=== PATIENT | female | born 1990 | race Caucasian/White ===

== ENCOUNTER 2020-08-07 06:42 | Outpatient (NON) | payer OTHER, SELFPAY ==
[2020-08-08 14:21] LABS: SARS-CoV-2 RNA PCR Negative
== END 2020-08-07 06:43 ==
PROVIDERS: PCP Nurse Practitioner Family; Visit Provider Nurse Practitioner Family
DX: Z20.828 Contact with and (suspected) exposure to other viral communicable diseases (principal); J06.9 Acute upper respiratory infection, unspecified
CPT/HCPCS: 87635; C9803; U0003

== ENCOUNTER 2022-12-31 13:31 | Emergency (ER) | payer OTHER, SELFPAY ==
[2022-12-31 13:38] VITALS: BP 127/77; PULSE 77; RESP 12; TEMP 36.6; O2SAT 100
--- NOTE | 2022-12-31 13:53 | ED.URI ---
HPI - URI/Sore Throat General Chief Complaint: Upper Respiratory Infection Stated Complaint: Sinus Time Seen by Provider: 12/31/22 13:50 Source: patient Mode of arrival: ambulatory Limitations: no limitations History of Present Illness HPI Narrative: Shania is a 32-year-old female patient presenting to the clinic today with complaints of sinus congestion. She reports that this has been going on for approximately 1 week. She is having some yellow nasal drainage and sinus pressure. She denies any fever or chills. MD elicited complaint: rhinorrhea, nasal congestion and sinus pain Related Data Home Medications Medication Instructions Recorded Confirmed dicyclomine 20 mg tablet mg 12/31/22 pantoprazole 40 mg tablet,delayed mg PO 12/31/22 release sodium,potassium,mag sulfates 17.5 12/31/22 gram-3.13 gram-1.6 gram oral soln Allergies Allergy/AdvReac Type Severity Reaction Status Date / Time Penicillins Allergy Severe RASH Verified 12/31/22 13:37 guaifenesin Allergy Intermediate Rash Verified 12/31/22 13:37 pseudoephedrine Allergy Intermediate Rash Verified 12/31/22 13:37 Review of Systems Review of Systems: Pertinent positives per HPI. Patient denies any fever, chills, rash, headache, visual changes, dizziness, cough, shortness of breath, chest pain, palpitations, nausea, vomiting, diarrhea, constipation, abdominal pain, or any urinary issues. 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 There is no relevant family history pertinent to the patient complaint. Exam Narrative: General: Well-developed, well nourished, in no apparent distress Head: Normocephalic, atraumatic Eyes: Pupils equally round and reactive to light bilaterally, EOM intact, sclera and conjunctive clear, no discharge, lids normal Ears: TMs intact and clear, ear canals clear, no drainage, grossly hearing normal. Nose: Nares patent, no discharge, no inflammation, no sinus tenderness. Mouth: Oral pharynx without lesions or masses, good dentition, MMM. Neck: Supple, trachea midline, no enlargement of anterior or posterior cervical nodes, no thyroid masses or goiter palpable. Cardio: Regular rate and rhythm, s1 and s2 normal, no murmur appreciated. Resp: Clear to auscultation bilaterally, no rhonchi, rales, wheezing or rubs Course Course Emergency Course: Portions of this record may have been created with voice recognition software. Level of Care: Express Care Visit Vital Signs Vital signs: Vital Signs Temperature 36.6 C 12/31/22 13:38 Pulse Rate 77 12/31/22 13:38 Respiratory Rate 12 12/31/22 13:38 Blood Pressure 127/77 12/31/22 13:38 Pulse Oximetry 100 12/31/22 13:38 Oxygen Delivery Room Air 12/31/22 13:38 Temperature 36.6 C 12/31/22 13:38 Pulse Rate 77 12/31/22 13:38 Respiratory Rate 12 12/31/22 13:38 Blood Pressure 127/77 12/31/22 13:38 Pulse Oximetry 100 12/31/22 13:38 Oxygen Delivery Room Air 12/31/22 13:38 Vital signs reviewed MDM - URI/Sore Throat MDM N
== END 2022-12-31 14:00 | disposition home or self-care (01) ==
PROVIDERS: Emergency Provider Nurse Practitioner Family; PCP Nurse Practitioner Family
DX: J06.9 Acute upper respiratory infection, unspecified (principal); H69.93 Unspecified Eustachian tube disorder, bilateral; Z87.891 Personal history of nicotine dependence; M19.90 Unspecified osteoarthritis, unspecified site; E28.2 Polycystic ovarian syndrome
CPT/HCPCS: 87081; 87880; 99213; G0463

== ENCOUNTER 2023-01-31 08:27 | Outpatient (RCR) | payer OTHER, SELFPAY ==
[2023-01-31 10:09] LABS: Basophils Percent Auto 0.4 % (0.2-1.2); Eosinophils Absolute Auto 0.1 K/mm3 (0-0.3); Eosinophils Percent Auto 0.8 % (0-4.4); Hematocrit 39.8 % (37.0-47.0); Hemoglobin 13.5 g/dL (12.0-15.0); Immature Granulocyte Absolute 0.01 K/mm3 (0.00-0.031); Immature Granulocyte Percent A 0.1 % (0-0.5); Lymphocytes Absolute Auto 3.13 K/mm3 (0.9-3.2); Lymphocytes Percent Auto 39.5 % (18.3-44.2); Mean Corpuscular HGB Conc 33.9 g/dl (32-36); Mean Corpuscular Hemoglobin 31.6 pg (26-34); Mean Corpuscular Volume 93.2 fl (80-100); Mean Platelet Volume 9.7 fl (7.4-10.4); Monocytes Absolute Auto 0.7 K/mm3 (0.1-0.6); Monocytes Percent Auto 8.6 % (2.6-8.5); Neutrophils Percent Auto 50.6 % (45.5-73.1); Platelet Count Result 226 k/mm3 (150-375); Red Blood Count 4.27 M/mm3 (4.2-5.4); Red Cell Distribution Width 12.4 % (11.5-14.5); White Blood Count 7.9 K/mm3 (4.5-10.0)
[2023-01-31 10:57] LABS: Creatinine Urine 146.1 mg/dL
[2023-01-31 11:07] LABS: Alanine Aminotransferase 19 U/L (6-35); Albumin Level 4.7 g/dL (3.5-5.1); Alkaline Phosphatase 69 U/L (38-126); Anion Gap 10 mmol/L (8-16); Aspartate Amino Transferase 22 U/L (14-36); Bilirubin,Total 0.5 mg/dL (0.2-1.3); Blood Urea Nitrogen 10 mg/dL (7-17); Calcium 9.2 mg/dL (8.4-10.2); Carbon Dioxide 24 mmol/L (22-30); Chloride 104 mmol/L (98-107); Estimated Glomerular Filt Rate > 60; Glucose 69 mg/dL (65-110); Glucose 1 Hour PP 50gm Dose 69 mg/dL; Potassium 3.2 mmol/L (3.4-5.0); Sodium 138 mmol/L (137-145)
[2023-01-31 11:34] LABS: HIV 1/2 Ab P24 Ag Result Negative (Negative)
[2023-01-31 11:53] LABS: Hepatitis B Surface Antigen Negative (Negative); Rubella IgG Antibody 48.3 IU/ML
[2023-01-31 14:09] LABS: Total Protein Urine Random 9 mg/dL
[2023-02-01 08:14] LABS: Rapid Plasma Reagin Non-Reactive (NonReactive)
[2023-02-03 08:20] LABS: CMV IgG Antibody <0.60 U/mL (<0.60)
== END 2023-05-01 23:59 | disposition home or self-care (01) ==
LOC: ANHLAB 08:27
PROVIDERS: PCP Nurse Practitioner Family; Visit Provider Student in an Organized Health Care Education/Training Program
DX: N94.89 Other specified conditions associated with female genital organs and menstrual cycle (principal); Z11.4 Encounter for screening for human immunodeficiency virus [HIV]
CPT/HCPCS: 36415; 80053; 81002; 81050; 82570; 82947; 84156; 85025; 86592; 86644; 86703; 86747; 86762; 86787; 86850; 86900; 86901; 87086; 87340; G0432

== ENCOUNTER 2023-02-22 17:56 | Observation (INO) | payer OTHER, SELFPAY ==
--- NOTE | ~2023-02-22 | US_ITS ---
EXAMINATION: US OB <= 14 weeks fetus DATE: 02/23/2023 10:31 INDICATION: Vaginal bleeding during first trimester twin TECHNIQUE: Real-time pelvic transabdominal ultrasound was performed. COMPARISON: None. FINDINGS: There are two intrauterine gestational sacs by a thick membrane. The cervical jacquie gth is 5.6 cm Baby A: heart motion is identified measuring 163 beats per minute (bpm) by M-mode Doppler. The cr own rump length measures 2.9 cm, which correlates with an estimated gestational age of 9 weeks and 5 day(s) (+/-) 6 day(s). Baby B: heart motion is identified measuring 162 beats per minute (bpm) by M-mode Doppler. The cr own rump length measures 2.9 cm, which correlates with an estimated gestational age of 9 weeks and 5 day(s) (+/-) 6 day(s). The ovaries are not visualized however no adnexal abnormality is seen. There is no free fluid in the pelvis. IMPRESSION: 1. Dichorionic, diamniotic twin with an estimated gestational age of 9 weeks and 5 day(s) ( +/-) 6 day(s). No sonographic correlate for vaginal bleeding. Reviewed, dictated and finalized at location L. IMPRESSION: 1. Dichorionic, diamniotic twin with an estimated gestational age of 9 weeks and 5 day(s) (+/-) 6 day(s). No sonographic correlate for vaginal bleed ing.
[2023-02-22 18:04] VITALS: BP 133/71; PULSE 86; RESP 14; TEMP 36.3; O2SAT 100
--- NOTE | 2023-02-22 18:11 | ED.PREGNANCY ---
HPI - General Chief complaint: Vaginal Bleeding Stated complaint: vaginal bleeding 8 weeks Time Seen by Provider: 02/22/23 18:10 Source: patient and family Mode of arrival: ambulatory Limitations: no limitations History of Present Illness HPI Narrative: Patient is a currently 9 weeks with twin presenting for evaluation of vaginal bleeding. Patient states that she was outside working in the yard, pulling weeds when she suddenly felt a denise of fluid and bright red blood present. Patient reports this persisted over the course of 1 hour, prompting visit to the ER. She denies any lightheadedness, dizziness, shortness of breath. No vaginal pain, cramping, contraction-like pain. Patient has had a pelvic ultrasound and [facility] office that was notable for twin gestation corresponding to LMP. Patient reports blood type is B+. Patient denies any recent heavy lifting. No vaginal intercourse. No discharge. No dysuria or hematuria. Related Data Home Medications Medication Instructions Recorded Confirmed sodium,potassium,mag sulfates 17.5 12/31/22 gram-3.13 gram-1.6 gram oral soln prenat.vits,stephanie,[id number] 1 tablet PO DAILY 01/30/23 Allergies Allergy/AdvReac Type Severity Reaction Status Date / Time Penicillins Allergy Severe RASH Verified 01/30/23 08:25 guaifenesin Allergy Intermediate Rash Verified 01/30/23 08:25 pseudoephedrine Allergy Intermediate Rash Verified 01/30/23 08:25 Review of Systems Review of Systems: CONSTITUTIONAL: Denies fever CARDIOVASCULAR: Denies chest pain RESPIRATORY: Denies cough or dyspnea. GASTROINTESTINAL: Denies abdominal pain : Reports vaginal bleeding SKIN: Denies rash MUSCULOSKELETAL: Denies back pain NEUROLOGIC: Denies headache REPLACED BY [facility] Past Medical History Medical History Arthritis Depression Gestational HTN PCOS (polycystic ovarian syndrome) Suppression of menses Surgical History Surgical History History of surgery Tumors removed from sinuses History of tonsillectomy Social History Social History Smoking status: Former smoker Tobacco type: cigarettes Alcohol intake: never Substance use: never Substance use type: does not use Living arrangements: with family Occupation/Education: occupation 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 EYES: PERRLA and EOMI. ENT: Nares clear, no rhinorrhea or epistaxis. Mucous membranes moist. NECK: Supple. CHEST: No respiratory distress, breathing even and non labored HEART: Regular rate, sinus rhythm ABDOMEN:Non distended, non tender : Labia majora and minora normal without lesions. Vagina with blood present; no large blood products. No brisk bleeding. No cervical motion tenderness. No adnexal tenderness or fullness bilaterally. No other discharge present. EXTREMITIES: Normal range of motion. No edema. SKIN: Warm, dry, no rash. NEURO:No focal deficits. Alert and oriented x3 Course Vital Signs Vital signs: Vital Signs Temperature 36.3 C L 02/22/23 18:04 Pulse Rate 86 02/22/23 18:04 Respiratory Rate 14 02/22/23 18:04 Blood Pressure 133/71 02/22/23 18:04 Pulse Oximetry 100 02/22/23 18:04 Oxygen Delivery Room Air 02/22/23 18:04 Temperature 36.6 C 02/22/23 19:42 Pulse Rate 69 02/22/23 19:42 Respiratory Rate 18 02/22/23 19:42 Blood Pressure 131/69 02/22/23 19:42 Pulse Oximetry 99 02/22/23 19:42 Oxygen Delivery Room Air 02/22/23 18:04 MDM - OB/Uterine Contractions MDM Narrative Medical decision making narrative: Medical de
[2023-02-22 18:56] LABS: Basophils Percent Auto 0.3 % (0.2-1.2); Eosinophils Absolute Auto 0.2 K/mm3 (0-0.3); Hematocrit 38.5 % (37.0-47.0); Immature Granulocyte Absolute 0.05 K/mm3 (0.00-0.031); Immature Granulocyte Percent A 0.4 % (0-0.5); Lymphocytes Absolute Auto 3.74 K/mm3 (0.9-3.2); Lymphocytes Percent Auto 33.2 % (18.3-44.2); Mean Corpuscular HGB Conc 33.8 g/dl (32-36); Mean Corpuscular Hemoglobin 31.9 pg (26-34); Mean Corpuscular Volume 94.4 fl (80-100); Mean Platelet Volume 9.3 fl (7.4-10.4); Monocytes Absolute Auto 0.8 K/mm3 (0.1-0.6); Monocytes Percent Auto 6.8 % (2.6-8.5); Neutrophils Absolute Auto 6.4 K/mm3 (1.3-6.7); Neutrophils Percent Auto 57.3 % (45.5-73.1); Platelet Count Result 250 k/mm3 (150-375); Red Blood Count 4.08 M/mm3 (4.2-5.4); Red Cell Distribution Width 12.8 % (11.5-14.5); White Blood Count 11.3 K/mm3 (4.5-10.0)
[2023-02-22 19:07] LABS: Anion Gap 7 mmol/L (8-16); Blood Urea Nitrogen 9 mg/dL (7-17); Calcium 9.3 mg/dL (8.4-10.2); Carbon Dioxide 27 mmol/L (22-30); Chloride 103 mmol/L (98-107); Estimated CRCL calculation 160 ml/min; Estimated Glomerular Filt Rate > 60; Glucose 84 mg/dL (65-110); Potassium 3.3 mmol/L (3.4-5.0); Sodium 137 mmol/L (137-145)
[2023-02-22 19:42] VITALS: BP 131/69; PULSE 69; RESP 18; TEMP 36.6; O2SAT 99
[2023-02-22 22:00] VITALS: BP 118/79; PULSE 77; RESP 18; TEMP 36.6; O2SAT 99
[2023-02-22 23:09] VITALS: BP 114/63; PULSE 71; RESP 16; TEMP 36.3; O2SAT 100
[2023-02-22 23:10] VITALS: BMI 35.0
--- NOTE | 2023-02-22 23:26 | ADMGEN ---
This patient, Shania Giron, was admitted to [facility] Surg Room 327-01. Patient/family oriented to hospital policies and general routines including ID bracelet, bed and alarms, visiting hours, pain management, procedures, bathroom and other care routines, personal items, smoking policy, room service/diet, and visiting hours. Information on how to activate the Rapid Response Team has been discussed. Patient/Family are encouraged to report perceived risks to care and to ask questions if they do not understand what they are told or what they should do.
[2023-02-23 05:50] VITALS: BP 107/70; PULSE 74; RESP 18; TEMP 36.2; O2SAT 100
--- NOTE | 2023-02-23 07:40 | PM.IMHP ---
H&P: HPI History of Present Illness Date/Time: 02/23/23 07:40 Chief Complaint: threatened Narrative: 32-year-old who presented to the emergency room with complaints of heavy vaginal bleeding. Patient is approximately 9 weeks with twin gestation. Patient states that yesterday she was working in the garden and noticed a gush of fluid. Patient is soon she had voided. Patient reached down and noticed it was bright red blood. Patient went into the restroom and continued to have heavy bleed. Patient states the bleeding was similar to a menses. Patient was evaluated in the emergency room. Bedside ultrasound showed 2 gestational sacs with 2 poles with cardiac activity. Patient was found to be hemodynamically stable. She was admitted for overnight observation. Patient denied any further bleeding overnight. Patient reports some lower back cramping. She denies any fevers, chills, nausea, vomiting. Review of Systems Review of Systems: All systems reviewed & are unremarkable except as noted in HPI and below Cardiovascular: Cardiovascular: Denies chest pain, Denies leg edema, Denies palpitations, Denies dyspnea and Denies dyspnea on exertion Respiratory: Respiratory: Denies cough, Denies dyspnea and Denies dyspnea on exertion Gastrointestinal: Gastrointestinal: Denies abdominal pain, Denies constipation, Denies diarrhea, Denies nausea and Denies vomiting Genitourinary: Genitourinary: Denies hematuria, Denies urinary frequency, Denies dysuria, Denies pelvic pain, Denies urinary incontinence and Denies vaginal discharge Neurologic: Reports system reviewed and no additional complaints, except as documented Psychiatric: Psychiatric: Reports no additional psychiatric complaints Endocrine: Endocrine: Denies palpitations PMFSH Past Medical History Medical History Arthritis Depression Gestational HTN PCOS (polycystic ovarian syndrome) Suppression of menses Surgical History Surgical History History of surgery Tumors removed from sinuses History of tonsillectomy Family History Family History (Updated 02/22/23 @ 23:22 by Estela Whittington RN) Other Bone cancer Social History Social History Smoking status: Never smoker Tobacco type: cigarettes Alcohol intake: never Substance use: never Substance use type: does not use Lack of Transportation: No Lack of Food: Never True Current Housing: I Have Housing Concerned About Future Housing: No Difficulty Paying Gas/Electric Bills: No Difficulty Paying for Meds: No Currently Unemployed: No Education: High School Diploma/GED Difficulty w/ Childcare or Family Care: No Living arrangements: with family Occupation/Education: occupation 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 Gender identity (if verbalized by the patient): Female Sexual Orientation (if Verbalized by the Patient): Straight or Heterosexual Spiritual care concerns: No Meds Home Medications and Allergies Home Medications Medication Instructions Recorded Confirmed Type metoclopramide HCl 5 mg tablet 5 mg PO DAILY #30 tabs 01/30/23 02/22/23 Rx (Reglan) prenat.vits,stephanie,[id number] 1 tablet PO DAILY 01/30/23 02/22/23 History Allergies Allergy/AdvReac Type Severity Reaction Status Date / Time Penicillins Allergy Severe RASH Verified 01/30/23 08:25 guaifenesin Allergy Intermediate Rash Verified 01/30/23 08:25 pseudoephedrine Allergy Intermediate Rash Verified 01/30/23 08:25 Vital Signs Vital Signs - 24 hr 02/22/23 18:04 02/22/23 19:42 02/22/23 22:00 Temperature 97.3 F L 98 F 98 F Pulse Rate 86 69 77 Respiratory Rate 14 18 18 Blood Pressure 133/71 131/69 118/79 Pulse Oximetry 100 99 99 Oxygen Delivery Room Air 02/22/23 23:09 02/23/23 05:50 Temp
--- NOTE | 2023-02-23 11:45 | PM.DS ---
DS: Admitting Diagnosis Discharge Date 02/23/23 Admitting Diagnosis threatened DS: Discharge Diagnosis Discharge Diagnosis (1) Threatened : Code(s): O20.0 - Threatened Status: Acute DS: Summary Hospital Course Hospital Course: 32-year-old who presents at approximately 9 weeks with vaginal bleeding. Patient is noted to have a diet a twin gestation . Patient was admitted overnight for observation and formal ultrasound. Patient has any continued vaginal bleeding overnight. Patient remained hemodynamically stable throughout her stay. Formal ultrasound was obtained this morning. Two viable pregnancies with cardiac activity is uterus. No subchorionic hemorrhages side vaginal bleeding. Patient remained stable. Patient discharged home with bleeding precautions. Patient will follow up outpatient Time Spent with Patient Time attestation: Total time spent providing and/or coordinating discharge services: Exam Const: General: cooperative, healthy appearing, comfortable and no acute distress Eyes: EOM: EOMs intact bilaterally Neck: Neck: supple Thyroid: thyroid normal Chest: Breast/axilla inspection: normal inspection of the breasts Breast/axilla palpation: normal palpation of the breasts, normal palpation of the axillae and no axillary lymphadenopathy Resp: Effort & Inspection: normal respiratory effort Auscultation: clear to auscultation bilaterally Cardio: Rate: regular rate Rhythm: regular rhythm GI: Inspection: non-distended GI Palp: Yes Soft to palpation, No Tenderness to palpation present (GI) and No Guarding due to palpation present (GI) Auscultation: normal bowel sounds Skin: General skin exam: normal color and no rashes or lesions noted Neuro: Cognition (Neuro): normal cognition Speech: normal speech Extrem: General: normal to inspection and no edema Psych: Mental Status: mental status grossly normal Affect: normal affect DS: Data Data Completed and Pending Labs on day of discharge: Labs from last 24 hours 02/22/23 18:46 WBC 11.3 H RBC 4.08 L Hgb 13.0 Hct 38.5 MCV 94.4 MCH 31.9 MCHC 33.8 RDW 12.8 Plt Count 250 MPV 9.3 Immature Gran % (Auto) 0.4 Neut % (Auto) 57.3 Lymph % (Auto) 33.2 [place] % (Auto) 6.8 Eos % (Auto) 2.0 Baso % (Auto) 0.3 Lymph # (Auto) 3.74 H [place] # (Auto) 0.8 H Eos # (Auto) 0.2 Baso # (Auto) 0.0 Abs Immat Gran (auto) 0.05 H Absolute Neuts (auto) 6.4 Absolute Nucleated RBC 0.0 Nucleated RBC % 0.0 Sodium 137 Potassium 3.3 L Chloride 103 Carbon Dioxide 27 Anion Gap 7 L BUN 9 Creatinine 0.50 L Estim Creat Clear Calc 160 Estimated GFR > 60 Glucose 84 Calcium 9.3 Beta HCG, Quant 698561.00 Blood Type B Positive Antibody Screen Negative Screen Not Reportable Baby's Blood Type Not Reportable Baby's CHELSIE Not Reportable Doses of RhIg Required 0 Discharge Plan Discharge Discharging Clinician: Jim Armstrong Patient Disposition: Home, Self-Care Activity: as tolerated and pelvic rest Diet: regular Patient Instructions: Antibiotic Form, Threatened Miscarriage (DC) Stand Alone Forms: General Discharge Information Follow-up/Referrals: Jim Armstrong MD [Physician] - Discharge Medications: Continued prenat.vits,stephanie,[id number] Tablet 1 tablet PO DAILY metoclopramide HCl [Reglan] 5 mg tablet 5 mg PO DAILY Qty: 30 1RF Date of admission: 02/22/23 19:57 Primary Care Provider: Rigo,Hermelindo Admitting Provider: Jim Armstrong Attending physician on admission: Jim Armstrong Condition: Stable
== END 2023-02-23 13:35 | disposition home or self-care (01) ==
LOC: ANHED 21:11 → ANH3MEDSUR 21:58
PROVIDERS: Admitting Provider Student in an Organized Health Care Education/Training Program; Emergency Provider Emergency Medicine; PCP Nurse Practitioner Family; Visit Provider Student in an Organized Health Care Education/Training Program
DX: O20.9 Hemorrhage in early pregnancy, unspecified (principal); O30.041 Twin pregnancy, dichorionic/diamniotic, first trimester; Z3A.09 9 weeks gestation of pregnancy; Z79.899 Other long term (current) drug therapy
CPT/HCPCS: 36415; 76801; 80048; 81025; 84702; 85025; 85461; 86850; 86900; 86901; 99285; G0378

== ENCOUNTER 2023-07-12 07:13 | Outpatient (CLI) | payer OTHER, SELFPAY ==
[2023-07-12 08:53] LABS: Basophils Percent Auto 0.3 % (0.2-1.2); Eosinophils Absolute Auto 0.3 K/mm3 (0-0.3); Eosinophils Percent Auto 3.3 % (0-4.4); Hematocrit 36.5 % (37.0-47.0); Immature Granulocyte Absolute 0.11 K/mm3 (0.00-0.031); Immature Granulocyte Percent A 1.1 % (0-0.5); Lymphocytes Absolute Auto 2.59 K/mm3 (0.9-3.2); Lymphocytes Percent Auto 25.1 % (18.3-44.2); Mean Corpuscular HGB Conc 32.9 g/dl (32-36); Mean Corpuscular Hemoglobin 32.8 pg (26-34); Mean Corpuscular Volume 99.7 fl (80-100); Mean Platelet Volume 10.5 fl (7.4-10.4); Monocytes Absolute Auto 0.8 K/mm3 (0.1-0.6); Monocytes Percent Auto 7.8 % (2.6-8.5); Neutrophils Absolute Auto 6.4 K/mm3 (1.3-6.7); Neutrophils Percent Auto 62.4 % (45.5-73.1); Platelet Count Result 209 k/mm3 (150-375); Red Blood Count 3.66 M/mm3 (4.2-5.4); Red Cell Distribution Width 12.6 % (11.5-14.5); White Blood Count 10.3 K/mm3 (4.5-10.0)
[2023-07-12 09:05] LABS: Glucose 1 Hour PP 50gm Dose 120 mg/dL
[2023-07-12 09:44] LABS: HIV 1/2 Ab P24 Ag Result Negative (Negative)
== END 2023-07-12 07:14 | disposition home or self-care (01) ==
PROVIDERS: PCP Nurse Practitioner Family; Visit Provider Obstetrics & Gynecology
DX: Z34.90 Encounter for supervision of normal pregnancy, unspecified, unspecified trimester (principal); Z3A.00 Weeks of gestation of pregnancy not specified
CPT/HCPCS: 36415; 82947; 85025; 86703; G0432

== ENCOUNTER 2023-08-17 09:30 | Outpatient (CLI) | payer OTHER, SELFPAY ==
--- NOTE | ~2023-08-17 | US_ITS ---
Duplex Sonography of the bilateral lower extremities: Indication: Swelling Sagittal and transverse B-mode images as well as color-flow imaging were performed on the right and l eft femoral and popliteal veins. B-mode examination was done without and with compression in the tra nsverse plane. There is good visualization of the bilateral common femoral, proximal profunda femora l, superficial femoral, greater saphenous, and popliteal veins. Normal flow was seen on color-flow im aging. Normal compressibility was demonstrated. Visualized calf veins are also patent. Impression: No evidence of deep vein thrombosis involving either lower extremity. Reviewed, dictated and finalized at location M. Impression: No evidence of deep vein thrombosis involving either lower extremit y.
== END 2023-08-17 09:31 | disposition home or self-care (01) ==
PROVIDERS: PCP Nurse Practitioner Family; Visit Provider Obstetrics & Gynecology
DX: M79.89 Other specified soft tissue disorders (principal)
CPT/HCPCS: 93970

== ENCOUNTER 2023-08-22 07:31 | Outpatient (RCR) | payer OTHER, SELFPAY ==
[2023-08-01 10:40] VITALS: BP 114/72; PULSE 73
[2023-08-08 08:30] VITALS: BP 119/74; PULSE 73
[2023-08-15 09:18] VITALS: BP 129/78; PULSE 71
--- NOTE | ~2023-08-22 | US_ITS ---
EXAMINATION: US OB BPP multi gestation DATE: 08/01/2023 11:14 INDICATION: Twin gestation. Third trimester. TECHNIQUE: Real-time ultrasound of the pelvis was performed. COMPARISON: Ultrasound 07/14/2023, 02/03/2023 FINDINGS: There are two living fetuses by a membrane. The placentas are right posterior and left fun amandeep. The amniotic fluid volume is subjectively normal in each sac. Fetus A: Lie is transverse with head to mother's right. heart rate is 142 beats per minute (bpm). Biophysical profile performed by the technologist: breathing (30 sec sustained breathing in 30 minutes): 2 out of 2 movement (3 gross body movements in 30 minutes): 2 out of 2 tone (one episode of qbiwkyv-vgldwmddc-ooiahsb limb movement): 2 out of 2 Amniotic fluid pocket (2 cm): 2 out of 2 Total score: 8 out of 8 Fetus B: Lie is transverse with head to mother's right. heart rate is 148 bpm. Biophysical profile performed by the technologist: breathing (30 sec sustained breathing in 30 minutes): 2 out of 2 movement (3 gross body movements in 30 minutes): 2 out of 2 tone (one episode of hvymhlw-ylgmuxqdc-ylpmgoi limb movement): 2 out of 2 Amniotic fluid pocket (2 cm): 2 out of 2 Total score: 8 out of 8 IMPRESSION: 1. Living dichorionic, diamniotic twin fetuses. 2. Biophysical profile 8 out of 8 for fetus A and 8 out of 8 for fetus B. Reviewed, dictated and finalized at location E.
--- NOTE | ~2023-08-22 | US_ITS ---
EXAMINATION: US OB BPP multi gestation DATE: 08/08/2023 09:52 INDICATION: Twin gestation. Third trimester. TECHNIQUE: Real-time ultrasound of the pelvis was performed. COMPARISON: Ultrasound 08/01/2023 FINDINGS: There are two living fetuses by a membrane. The placentas are posterior. Fetus A: Presentation is vertex on the mother's left. heart rate is 140 beats per minute (bpm). Biophysical profile performed by the technologist: breathing (30 sec sustained breathing in 30 minutes): 2 out of 2 movement (3 gross body movements in 30 minutes): 2 out of 2 tone (one episode of esqmdmz-huavvubjw-tcwncoo limb movement): 2 out of 2 Amniotic fluid pocket (2 cm): 2 out of 2 Total score: 8 out of 8 The following biometric data were obtained for Fetus A: Biparietal diameter (BPD): 7.8 cm; head circumference (HC): 29.7 cm; abdominal circumference (AC): 28 .7 cm; femur length (FL): 6.1 cm. These measurements are concordant. Estimated weight is 1938 g +/- 291 g, which correlates with the 21st percentile when 09/26/23 i s used as estimated date of delivery. As single measurements, these parameters are each equal to the following estimated gestational ages: BPD: 31 weeks 2 days. HC: 32 weeks 6 days. AC: 32 weeks 5 days. FL: 31 weeks 5 days. estimated gestational age based solely on measurements from this exam is 32 weeks 1 days +/- 2 weeks 2 days. Fetus B: Presentation is breech on the mother's right. heart rate is 132 bpm. Biophysical profile performed by the technologist: breathing (30 sec sustained breathing in 30 minutes): 2 out of 2 movement (3 gross body movements in 30 minutes): 2 out of 2 tone (one episode of twjtfzc-dmosfigjf-bnytqhz limb movement): 2 out of 2 Amniotic fluid pocket (2 cm): 2 out of 2 Total score: 8 out of 8 The following biometric data were obtained for Fetus B: Biparietal diameter (BPD): 7.8 cm; head circumference (HC): 30.0 cm; abdominal circumference (AC): 28 .3 cm; femur length (FL): 6.1 cm. These measurements are concordant. Estimated weight is 1903 g +/- 286 g, which correlates with the 17th percentile when 09/26/23 i s used as estimated date of delivery. As single measurements, these parameters are each equal to the following estimated gestational ages: BPD: 31 weeks 1 days. HC: 33 weeks 0 days. AC: 32 weeks 3 days. FL: 31 weeks 4 days. estimated gestational age based solely on measurements from this exam is 32 weeks 0 days +/- 2 weeks 2 days. IMPRESSION: 1. Living dichorionic, diamniotic twin fetuses. 2. Estimated weight is 1938 g +/- 291 g for Fetus A, which correlates with the 21st percentile when 09/26/23 is used as estimated date of delivery. Estimated weight is 1903 g +/- 286 g for F etus B, which correlates with the 17th percentile. 3. Biophysical profile 8 out of 8 for fetus A and 8 out of 8 for fetus B. Reviewed, dictated and finalized at location A. IMPRESSION: 1. Living dichorionic, diamniotic twin fetuses. 2. Estimated weight is 1938 g +/- 291 g for Fetus A, which correlates wit h the 21st percentile when 09/26/23 is used as estimated date of delivery. Emma mated weight is 1903 g +/- 286 g for Fetus B, which correlates with the 1 7th percentile. 3. Biophysical profile 8 out of 8 for fetus A and 8 out of 8 for fetus B.
--- NOTE | ~2023-08-22 | US_ITS ---
US OB BPP multi gestation DATE: 08/15/2023 08:52 INDICATION: Twin gestation TECHNIQUE: Real-time imaging and Doppler analysis. Biophysical profile. COMPARISON: 08/08/2023 obstetrical ultrasound with biophysical profile FINDINGS: Dichorionic diamniotic twin gestation. Fetus A: Maternal left Longitudinal lie, vertex presentation Posterior placenta. Normal amount of amniotic fluid; amniotic fluid pocket depth up to 2.4 cm 134 heart beats per minute BIOPHYSICAL PROFILE reported by orthodontic technician assistant: breathin out of 2 movement: 2 out of 2 tone: 2 out of 2 Amniotic fluid pocket: 2 out of 2 Total score: 8 out of 8 Fetus B: Maternal right Longitudinal lie, vertex presentation Posterior placenta. Normal amount of amniotic fluid; amniotic fluid pocket depth up to 2.2 cm; 133 heartbeats per minute BIOPHYSICAL PROFILE reported by orthodontic technician assistant: breathin out of 2 movement: 2 out of 2 tone: 2 out of 2 Amniotic fluid pocket: 2 out of 2 Total score: 8 out of 8 IMPRESSION: Normal biophysical profile score of 8 out of 8 for both twins Reviewed, dictated and finalized at Location A. Reviewed, dictated and finalized at location L.
--- NOTE | ~2023-08-22 | US_ITS ---
EXAMINATION: US OB BPP wo non-stress DATE: 08/22/2023 09:25 CDT INDICATION: Biophysical profile. Twin gestation. TECHNIQUE: Real-time transabdominal obstetric ultrasound. FINDINGS: 08/15/2023 There is twin living intrauterine . Twin A heart rate 124 BPM in breech presentation. Twin B heart rate 124 BPM in breech presentation.. No evidence for placenta previa. Amniotic fl uid is subjectively normal. Biophysical profile for both twins: breathin of 2 movement: 2 of 2 tone: 2 of 2 Amniotic flud pocket: 2 of 2 Total score: 8 of 8 IMPRESSION: 1. 20 living intrauterine in breech presentation. 2: Total biophysical profile score of 8/8 for each twin. Reviewed, dictated and finalized at location L.
[2023-08-22 09:10] VITALS: BP 127/77; PULSE 65
== END 2023-09-14 11:31 | disposition home or self-care (01) ==
LOC: ANHOBOP 07:31
PROVIDERS: PCP Nurse Practitioner Family; Visit Provider Obstetrics & Gynecology
DX: O30.043 Twin pregnancy, dichorionic/diamniotic, third trimester (principal); Z3A.32 32 weeks gestation of pregnancy; Z3A.33 33 weeks gestation of pregnancy; Z3A.34 34 weeks gestation of pregnancy; Z3A.35 35 weeks gestation of pregnancy
CPT/HCPCS: 59025; 76819

== ENCOUNTER 2023-08-24 16:18 | Inpatient (IN) | payer OTHER, SELFPAY ==
[2023-08-24 16:41] VITALS: BMI 44.1
--- NOTE | 2023-08-24 16:42 | OBADM ---
This patient, Shania Giron, admitted to the OB room OB Post 113 for observation. Patient/family oriented to hospital policies and general routines including ID bracelet, bed and alarms, visiting hours, pain management, procedures, bathroom and other care routines, personal items, smoking policy, room service/diet, and visiting hours. Patient/Family are encouraged to report perceived risks to care and to ask questions if they do not understand what they are told or what they should do.
[2023-08-24 17:00] VITALS: BP 117/73; PULSE 80
[2023-08-24] MEDS: BETAMETHASONE SOD PHOS/ACETATE 30 MG/5 ML VIAL 12 MG IM (17:18)
[2023-08-24 17:30] VITALS: BP 121/74; PULSE 83
[2023-08-24 17:45] VITALS: BP 118/68; PULSE 89
[2023-08-25] VITALS (83 sets, daily range): BP systolic 88–125; BP diastolic 45–79; PULSE 54–134; RESP 15–19; TEMP 36.6; O2SAT 86–100
--- NOTE | 2023-08-25 02:00 | PC.NURSE ---
Called Emir and reported Pt's contractions. IV bolus ordered. IV placed. Radha Pollard RN
[2023-08-25] MEDS: LACTATED RINGERS 1,000 ML 999 ML IV CONT ×2 (02:30→09:45)
[2023-08-25] MEDS: LACTATED RINGERS 1,000 ML 125 ML IV CONT ×2 (03:50→10:20)
--- NOTE | 2023-08-25 07:26 | PM.IMHP ---
H&P: HPI History of Present Illness Date/Time: 08/25/23 07:26 Chief Complaint: back pain Narrative: Shania is a 33yo @ 35.3wks who was admitted overnight after being seen in clinic for routine care. She endorsed having back pains and venus berry, on cervical exam she was found to be 3.5/50/-3. She did get betamethasone on arrival. Overnight, her contractions did pick pulling machine tender, and she has been receiving IV fluids-- made change to 4cm. This morning she reports feeling contractions and states they are strong and painful. Her is complicated by: - di/di twins- growth scan Q 3 wks starting at 20 wks, NSTs at 32 wks - BREECH malpresentation x 2 - obesity- pre- BMI 35 - h/o GHTN, on ASA at 12 wks - AMA Review of Systems Constitutional: Constitutional: Denies chills, Denies fever(s) and Denies headache(s) Eyes: Eyes: Denies change in vision ENT: Denies headache(s) Cardiovascular: Cardiovascular: Denies chest pain and Denies dyspnea Respiratory: Respiratory: Denies dyspnea Genitourinary: Genitourinary: Denies abnormal vaginal bleeding and Denies vaginal discharge Neurologic: Denies headache(s) Psychiatric: Psychiatric: Denies anxiety and Denies depression COUNTS INCLUDE 234 BEDS AT THE [facility] Past Medical History Medical History Arthritis Depression Gestational HTN PCOS (polycystic ovarian syndrome) Suppression of menses Surgical History Surgical History History of surgery Tumors removed from sinuses History of tonsillectomy Family History Family History Other Bone cancer Social History Social History Smoking status: Never smoker Tobacco type: cigarettes Alcohol intake: never Substance use: never Substance use type: does not use Lack of Transportation: No Lack of Food: Never True Current Housing: I Have Housing Concerned About Future Housing: No Difficulty Paying Gas/Electric Bills: No Difficulty Paying for Meds: No Currently Unemployed: No Education: High School Diploma/GED Difficulty w/ Childcare or Family Care: No Living arrangements: with family Occupation/Education: occupation 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 Gender identity (if verbalized by the patient): Female Sexual Orientation (if Verbalized by the Patient): Straight or Heterosexual Spiritual care concerns: No Meds Home Medications and Allergies Home Medications Medication Instructions Recorded Confirmed Type metoclopramide HCl 5 mg tablet 5 mg PO DAILY #30 tabs 01/30/23 08/24/23 Rx (Reglan) prenat.vits,stephanie,[id number] 1 tablet PO DAILY 01/30/23 08/24/23 History aspirin 81 mg tablet,delayed 81 mg PO DAILY 07/12/23 08/24/23 History release (Adult Low Dose Aspirin) RSV vac, preF A and preF B(PF) 120 0.5 ml IM ONCE #1 ea 08/10/23 08/24/23 Rx mcg/0.5 mL IM solution (Abrysvo) Allergies Allergy/AdvReac Type Severity Reaction Status Date / Time Penicillins Allergy Severe RASH Verified 08/17/23 08:13 guaifenesin Allergy Intermediate Rash Verified 08/17/23 08:13 pseudoephedrine Allergy Intermediate Rash Verified 08/17/23 08:13 Vital Signs Vital Signs - 24 hr 08/24/23 17:00 08/24/23 17:30 08/24/23 17:45 Temperature Pulse Rate 80 83 89 Respiratory Rate Blood Pressure 117/73 121/74 118/68 Pulse Oximetry Oxygen Delivery 08/25/23 01:49 08/25/23 02:13 08/25/23 02:18 Temperature Pulse Rate 60 Respiratory Rate Blood Pressure 122/66 Pulse Oximetry 100 100 Oxygen Delivery 08/25/23 02:23 08/25/23 02:28 08/25/23 02:33 Temperature Pulse Rate Respiratory Rate Blood Pressure Pulse Oximetry 100 100 100 Oxygen Delivery 08/25/23 02:38 08/25/23 02:43 08/25/23 02:48 Temperature Pulse Rate Re
[2023-08-25] MEDS: BETAMETHASONE SOD PHOS/ACETATE 30 MG/5 ML VIAL 12 MG IM (08:27)
--- NOTE | 2023-08-25 08:29 | WPDHPUPDATE1 ---
History and Physical Update Update Date/Time: 08/25/23 08:29 History and Physical has been reviewed, including an updated exam of the patient. There are NO changes in the patient's condition. Risks, benefits, and alternatives have been discussed and questions answered. Patient agrees to proceed with procedure.
[2023-08-25 08:52] LABS: Basophils Percent Auto 0.2 % (0.2-1.2); Hematocrit 36.9 % (37.0-47.0); Hemoglobin 12.4 g/dL (12.0-15.0); Immature Granulocyte Percent A 1.1 % (0-0.5); Lymphocytes Absolute Auto 1.58 K/mm3 (0.9-3.2); Lymphocytes Percent Auto 16.7 % (18.3-44.2); Mean Corpuscular HGB Conc 33.6 g/dl (32-36); Mean Corpuscular Hemoglobin 32.9 pg (26-34); Mean Corpuscular Volume 97.9 fl (80-100); Mean Platelet Volume 11.2 fl (7.4-10.4); Monocytes Absolute Auto 0.7 K/mm3 (0.1-0.6); Monocytes Percent Auto 7.3 % (2.6-8.5); Neutrophils Absolute Auto 7.1 K/mm3 (1.3-6.7); Neutrophils Percent Auto 74.7 % (45.5-73.1); Platelet Count Result 185 k/mm3 (150-375); Red Blood Count 3.77 M/mm3 (4.2-5.4); Red Cell Distribution Width 13.2 % (11.5-14.5); White Blood Count 9.5 K/mm3 (4.5-10.0)
--- NOTE | 2023-08-25 09:52 | WPDANESEPPF ---
Anes - Initial Pre Proc Eval Procedure: primary c/s Date/Time: 08/25/23 09:52 Surgeon: Sarah Correa MD Pre Op Diagnosis: twin gestation Pre Op Diagnosis: contractions Patient Data Age: 33 Gender: F Height: 1.7 m Weight: 128 kg Last Vital Signs Temp 36.6 C 08/25/23 06:52 Pulse 81 08/25/23 06:52 Resp 18 08/25/23 06:52 BP 125/79 08/25/23 06:52 Pulse Ox 96 08/25/23 05:11 O2 Del Method Room Air 08/25/23 07:01 Allergies Allergy/AdvReac Type Severity Reaction Status Date / Time Penicillins Allergy Severe RASH Verified 08/17/23 08:13 guaifenesin Allergy Intermediate Rash Verified 08/17/23 08:13 pseudoephedrine Allergy Intermediate Rash Verified 08/17/23 08:13 Home Medications Medication Instructions Recorded Confirmed Type metoclopramide HCl 5 mg tablet 5 mg PO DAILY #30 tabs 01/30/23 08/24/23 Rx (Reglan) prenat.vits,stephanie,[id number] 1 tablet PO DAILY 01/30/23 08/24/23 History aspirin 81 mg tablet,delayed 81 mg PO DAILY 07/12/23 08/24/23 History release (Adult Low Dose Aspirin) RSV vac, preF A and preF B(PF) 120 0.5 ml IM ONCE #1 ea 08/10/23 08/24/23 Rx mcg/0.5 mL IM solution (Abrysvo) Laboratory Tests 08/25/23 08:45 WBC 9.5 K/mm3 (4.5-10.0) RBC 3.77 L M/mm3 (4.2-5.4) Hgb 12.4 g/dL (12.0-15.0) Hct 36.9 L % (37.0-47.0) MCV 97.9 fl (80-100) MCH 32.9 pg (26-34) MCHC 33.6 g/dl (32-36) RDW 13.2 % (11.5-14.5) Plt Count 185 k/mm3 (150-375) MPV 11.2 H fl (7.4-10.4) Immature Gran % (Auto) 1.1 H % (0-0.5) Neut % (Auto) 74.7 H % (45.5-73.1) Lymph % (Auto) 16.7 L % (18.3-44.2) [place] % (Auto) 7.3 % (2.6-8.5) Eos % (Auto) 0.0 % (0-4.4) Baso % (Auto) 0.2 % (0.2-1.2) Lymph # (Auto) 1.58 K/mm3 (0.9-3.2) [place] # (Auto) 0.7 H K/mm3 (0.1-0.6) Eos # (Auto) 0.0 K/mm3 (0-0.3) Baso # (Auto) 0.0 K/mm3 (0.0-0.1) Abs Immat Gran (auto) 0.10 H K/mm3 (0.00-0.031) Absolute Neuts (auto) 7.1 H K/mm3 (1.3-6.7) Absolute Nucleated RBC 0.0 K/mm3 (0.0-0.012) Nucleated RBC % 0.0 % (0.0-0.2) RPR Pending Patient hx anesthesia problems: none Family hx anesthesia problems: none Results Review: All pre-operative results and documents have been reviewed as part of the pre-operative evaluation. FOR[facility]LY [facility] Past Medical History Medical History Arthritis Depression Gestational HTN PCOS (polycystic ovarian syndrome) Suppression of menses Surgical History Surgical History History of surgery Tumors removed from sinuses History of tonsillectomy Family History Family History Other Bone cancer Social History Social History Smoking status: Never smoker Tobacco type: cigarettes Alcohol intake: never Substance use: never Substance use type: does not use Lack of Transportation: No Lack of Food: Never True Current Housing: I Have Housing Concerned About Future Housing: No Difficulty Paying Gas/Electric Bills: No Difficulty Paying for Meds: No Currently Unemployed: No Education: High School Diploma/GED Difficulty w/ Childcare or Family Care: No Living arrangements: with family Occupation/Education: occupation 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
[2023-08-25] MEDS: ceFAZolin 3 GM/D5W 100 ML 100 ML IVPB (10:18)
[2023-08-25 10:28] LABS: Rapid Plasma Reagin Non-Reactive (NonReactive)
--- NOTE | 2023-08-25 11:39 | PM.OBPRVD ---
OB - Delivery Note Procedure Delivery date: 08/25/23 Events: Breech Presentation (x2), Multiple Gestation and Other ( labor) Delivery monitor: External FHT and External Uterine Route of delivery: Specimen: Yes (placenta x2) Quantitative Blood Loss (ml): 1,080 Anesthesia type: Spinal Disposition: Floor Baby Date of : 08/25/23 Time of : 10:53 Weeks of gestation at delivery: 35 (.3) gender: Male (A) Weight (pounds): 5 Weight (ounces): 14 presentation: breech Placenta delivery description: Expressed Cord Vessel Description: 3 Vessels and Clamped/Cut score one minute: 8 score five minutes: 9 Twins 1: Date of : 08/25/23 Time of : 10:54 Weeks of gestation at delivery: 35 (.3) gender: Female (B) Weight (pounds): 5 Weight (ounces): 8 presentation: transverse (, delivered breech) Placental delivery description: Expressed Cord Vessel Description: 3 Vessels and Clamped/Cut score one minute: 7 score five minutes: 8 Narrative: She was counseled on all risks and benefits in detail. She was taken to the operating room where spinal was placed. She was then prepped and draped in the normal sterile fashion. She received 3g Ancef and a time out was performed. A Pfannenstiel incision was made in the skin and carried down to the underlying fascia. The fascia was nicked on either side of the midline and the fascial incision was extended laterally and superiorly using curved Pittman scissors. The fascia was then elevated using Mitzi clamps and the underlying rectus muscles were dissected off the fascia, superiorly and inferiorly. The rectus muscles were then in the midline and the peritoneum was entered bluntly. Once adequate exposure was obtained, a Mobius self retractor was placed within the abdomen. A bladder flap was created. A low transverse incision was made on the lower uterine segment and clear fluid was noted. The buttocks were brought to the hysterotomy and he was delivered performing normal breech maneuvers. The infant had spontaneous cry and the mouth and nose were bulb suctioned. The cord was clamped and cut and the infant was handed off to the awaiting pediatric nurse. Twin B was grasped and buttocks were brought to hysterotomy. The second amniotic sac was ruptured with clear fluid. She (twin B) was delivered performing normal breech maneuvers without issue. A segment of each cord was collected for cord gases. The remaining cord blood was collected for typing. With pitocin infusing, the placentas delivered with gentle traction on both cords without complications. The uterus was then cleared out of all clots and debris using a clean, moist lap. The hysterotomy was then repaired in a running, interlocking fashion using 0 Vicryl. A second layer imbricating suture was then made using 0 Vicryl. An additional 0 Vicryl figure of eight stitch placed in the lower, mid portion of the hysterotomy, and it was then found to be hemostatic and good uterine tone was noted. The bilateral adnexa were examined and found to be normal. The pelvis was cleared of all clots and fluid. The Mobius retractor was removed from the abdomen. The peritoneum, muscle, and fascia were examined and made hemostatic with bovie cautery. The fascia was then repaired using a 0 Vicryl suture in a running fashion. The subcutaneous tissue was then irrigated and made hemostatic with bovie cautery. The subcutaneous tissue was then reapproximated using 2-0 Vicryl. The skin was then closed using 4-0 Monocryl in a running subcuticular fashion. A PRASANTH dressing was placed without issue. Sponge, lap, needle and instrument counts were correct at the end of the procedure x2. The patient tolerated the procedure well and was taken to recovery in a stable condition. [facility] Delivery Billing Delivery Delivery: Delivery Debi
--- NOTE | 2023-08-25 15:50 | PC.NURSE ---
Patient transferred to post room #277 via stretcher. Support person present. Oriented to unit, room, information board, rooming in, admission packet and security measures. Patient verbalizes understanding.
[2023-08-25] MEDS: DEXTROSE 5%/0.45% SOD CHL 1,000 ML 125 ML IV CONT (16:38)
[2023-08-25] MEDS: KETOROLAC 30 MG/ML VIAL (*BKC) IV PUSH (18:29)
[2023-08-25] MEDS: LIDOCAINE 5% PATCH 1 PATCH TRANSDERM (18:29)
[2023-08-25] MEDS: SIMETHICONE 80 MG TAB.CHEW PO (18:31)
[2023-08-26] MEDS: HYDROcodone/acetaminophen (*CRX) 5-325 MG TABLET 1 TAB PO ×3 (00:20→09:30)
[2023-08-26] MEDS: SIMETHICONE 80 MG TAB.CHEW PO ×2 (00:20→05:10)
[2023-08-26 04:00] VITALS: BP 140/90; PULSE 64; RESP 18; TEMP 36.4; O2SAT 100
[2023-08-26 04:51] LABS: Basophils Percent Auto 0.1 % (0.2-1.2); Hematocrit 27.1 % (37.0-47.0); Hemoglobin 9.1 g/dL (12.0-15.0); Immature Granulocyte Absolute 0.15 K/mm3 (0.00-0.031); Lymphocytes Absolute Auto 2.22 K/mm3 (0.9-3.2); Lymphocytes Percent Auto 15.4 % (18.3-44.2); Mean Corpuscular HGB Conc 33.6 g/dl (32-36); Mean Corpuscular Hemoglobin 33.3 pg (26-34); Mean Corpuscular Volume 99.3 fl (80-100); Mean Platelet Volume 11.4 fl (7.4-10.4); Monocytes Absolute Auto 1.4 K/mm3 (0.1-0.6); Monocytes Percent Auto 9.4 % (2.6-8.5); Neutrophils Absolute Auto 10.7 K/mm3 (1.3-6.7); Neutrophils Percent Auto 74.1 % (45.5-73.1); Platelet Count Result 174 k/mm3 (150-375); Red Blood Count 2.73 M/mm3 (4.2-5.4); Red Cell Distribution Width 13.3 % (11.5-14.5); White Blood Count 14.4 K/mm3 (4.5-10.0)
[2023-08-26] MEDS: IBUPROFEN 600 MG TABLET PO ×3 (05:10→17:03)
[2023-08-26 08:12] VITALS: BP 136/88; PULSE 62; RESP 16; TEMP 36.1; O2SAT 99
[2023-08-26] MEDS: MULTIVIT/MIN/PREN/FOL AC/IRON TABLET 1 TAB PO (09:29)
[2023-08-26] MEDS: POLYSACCHARIDE IRON COMPLEX 150 MG CAPSULE PO ×2 (09:30→17:03)
[2023-08-26] MEDS: DOCUSATE SODIUM 100 MG CAPSULE PO ×2 (09:30→17:03)
--- NOTE | 2023-08-26 11:02 | P.PNOB_ITS ---
OB - PN: Subj Subjective Date/time seen: 08/26/23 11:02 Patient comments: no complaints and pain well controlled baby status: other (twins doing well) [place] feeding status: breast and bottle feeding OB - PN: Obj Data Labs 08/26/23 04:30 Labs: Laboratory Results - last 24 hr 08/26/23 04:30 WBC 14.4 H RBC 2.73 L Hgb 9.1 L D Hct 27.1 L MCV 99.3 MCH 33.3 MCHC 33.6 RDW 13.3 Plt Count 174 MPV 11.4 H Immature Gran % (Auto) 1.0 H Neut % (Auto) 74.1 H Lymph % (Auto) 15.4 L [place] % (Auto) 9.4 H Eos % (Auto) 0.0 Baso % (Auto) 0.1 L Lymph # (Auto) 2.22 [place] # (Auto) 1.4 H Eos # (Auto) 0.0 Baso # (Auto) 0.0 Abs Immat Gran (auto) 0.15 H Absolute Neuts (auto) 10.7 H Absolute Nucleated RBC 0.0 Nucleated RBC % 0.0 OB - PN A/P Plan day: 1 Plan: routine care Time Spent With Patient Time: Total time spent is greater than 50% in coordination of care (as documented) at patient's floor/unit and/or counseling patient: Exam Narrative: bandage intact fundus firm, nt Const: General: comfortable
--- NOTE | 2023-08-26 15:57 | WPDANLDPN2 ---
Anes-Prog Note L&D Date/Time: 08/26/23 15:57 Comfortable throughout: section Neuraxial method: spinal Epidural/Spinal procedure site: clean & non-tender Neuro status: Neuro function grossly intact. Cardiovascular status: normal Respiratory status: normal Airway patency: baseline Mental status: baseline Post-Op hydration status: normal Vital Signs: Last Vital Signs Temp 36.1 C L 08/26/23 08:12 Pulse 62 08/26/23 08:12 Resp 16 08/26/23 08:12 BP 136/88 08/26/23 08:12 Pulse Ox 99 08/26/23 08:12 O2 Del Method Room Air 08/25/23 20:00 Pain score (VAS): 2/10 I/O: Intake & Output 08/25/23 08/26/23 08/26/23 23:59 07:59 15:59 Intake Total 250 700 500 Output Total 600 2675 750 Balance -350 -1975 -250 Post-procedural complaints: none Patient feedback: Patient satisfied with anesthetic care.
--- NOTE | 2023-08-26 15:57 | WPDANLDNPN2 ---
Anes-Prog Note L&D-Neuraxial Date/Time: 08/26/23 15:57 Neuraxial medications: intrathecal PF morphine Opiod-related complaints: none Patient feedback: Patient satisfied with post-operative pain management.
[2023-08-26 20:00] VITALS: BP 129/86; PULSE 82; RESP 18; TEMP 36.6; O2SAT 97
[2023-08-26] MEDS: LIDOCAINE 5% PATCH 1 PATCH TRANSDERM (22:14)
[2023-08-26] MEDS: HYDROcodone/acetaminophen (*CRX) 10-325 MG TABLET 1 TAB PO (22:15)
[2023-08-27] MEDS: IBUPROFEN 600 MG TABLET PO ×4 (04:40→22:41)
[2023-08-27] MEDS: HYDROcodone/acetaminophen (*CRX) 10-325 MG TABLET 1 TAB PO (04:40)
[2023-08-27] MEDS: POLYSACCHARIDE IRON COMPLEX 150 MG CAPSULE PO ×2 (07:44→16:46)
[2023-08-27] MEDS: DOCUSATE SODIUM 100 MG CAPSULE PO ×2 (07:44→16:46)
[2023-08-27] MEDS: HYDROcodone/acetaminophen (*CRX) 5-325 MG TABLET 1 TAB PO ×5 (07:44→22:45)
[2023-08-27 07:45] VITALS: BP 125/87; PULSE 73; RESP 16; TEMP 36.9; O2SAT 100
[2023-08-27] MEDS: MULTIVIT/MIN/PREN/FOL AC/IRON TABLET 1 TAB PO (08:43)
--- NOTE | 2023-08-27 09:59 | PM.OBPNVD ---
OB - PN: Subj Subjective Date/time seen: 08/27/23 09:00 Interval history: Pt is POD 2 from primary LTCS. Doing well. Urinating without difficulty. Denies passing any large clots. Denies dizziness with ambulating. Tolerating po food and fluids. Bonding with infant. Pain well controlled wiht po medication. She is pumping and bottle feeding. Spouse present and supportive. Patient comments: pain well controlled [place] baby status: doing well and bottle feeding well [place] feeding status: pumping and bottle feeding OB - PN: Obj Data Labs 08/26/23 04:30 OB - PN A/P Assessment and Plan (1) S/P primary low transverse : Code(s): Z98.891 - History of uterine scar from previous surgery Status: Acute (2) Post-op pain: Code(s): G89.18 - Other acute postprocedural pain Status: Acute (3) Mother currently breast-feeding: Code(s): Z39.1 - Encounter for care and examination of lactating mother Status: Acute Plan day: 2 Plan: routine care Time Spent With Patient Time: Total time spent is greater than 50% in coordination of care (as documented) at patient's floor/unit and/or counseling patient: Review of Systems Review of Systems: All systems reviewed & are unremarkable except as noted in HPI and below Exam Const: General: cooperative, no acute distress and awake Orientation/consciousness: patient oriented x3 Limitations: no limitations Resp: Effort & Inspection: normal respiratory effort and able to speak in complete sentences Auscultation: clear to auscultation bilaterally Cardio: Rate: regular rate Peripheral pulses: Peripheral pulses 2+ throughout GI: Inspection: normal to inspection Auscultation: normal bowel sounds : General: Yes bladder normal to palpation Bimanual exam- vagina & uterus: bladder normal to palpation OB/external & speculum: vaginal bleeding Other: Fundus firm Skin: General skin exam: normal color Other: Incision covered with dressing/pump. no redness surrounding dressing. Neuro: General: patient oriented x3 Cognition (Neuro): normal cognition Speech: normal speech Extrem: General: normal to inspection Right lower extremity: edema Details: 1+ Left lower extremity: edema Details: 1+ Psych: Appearance: grossly normal Mental Status: mental status grossly normal Speech and movement: Normal speech and movement present Affect: normal affect Attitude: cooperative Thought process: Normal thought process present
[2023-08-27] MEDS: SIMETHICONE 80 MG TAB.CHEW PO ×2 (19:07→22:41)
[2023-08-27 19:40] VITALS: BP 151/96; PULSE 82; RESP 16; TEMP 36.6; O2SAT 99
[2023-08-27 20:25] VITALS: BP 140/99
[2023-08-27] MEDS: LIDOCAINE 5% PATCH 1 PATCH TRANSDERM (22:39)
[2023-08-27 22:40] VITALS: BP 127/80; PULSE 72
[2023-08-28] MEDS: HYDROcodone/acetaminophen (*CRX) 5-325 MG TABLET 1 TAB PO ×6 (02:16→22:43)
[2023-08-28] MEDS: SIMETHICONE 80 MG TAB.CHEW PO ×6 (02:16→22:43)
[2023-08-28 05:00] VITALS: BP 145/88; PULSE 73; O2SAT 98
[2023-08-28] MEDS: IBUPROFEN 600 MG TABLET PO ×3 (05:08→19:59)
[2023-08-28 07:45] VITALS: BP 135/83; PULSE 72; RESP 16; TEMP 36.8; O2SAT 98
[2023-08-28] MEDS: DOCUSATE SODIUM 100 MG CAPSULE PO ×2 (07:58→16:26)
[2023-08-28] MEDS: POLYSACCHARIDE IRON COMPLEX 150 MG CAPSULE PO ×2 (07:58→16:26)
--- NOTE | 2023-08-28 11:00 | P.PNOB_ITS ---
OB - PN: Subj Subjective Date/time seen: 08/28/23 11:00 Narrative: POD#1 Shania reports doing well today. 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 Her pain is controlled. She is tolerating regular diet, voiding, passing gas, and ambulating without issues. She denies any issues with her incision/PRASANTH dressing. She is breast feeding and pumping. The twins are doing well; working on gaining weight. She would like her son circumcised. OB - PN: Obj Data Labs 08/26/23 04:30 OB - PN A/P Assessment and Plan (1) S/P primary low transverse : Code(s): Z98.891 - History of uterine scar from previous surgery Status: Acute Plan day: 3 Plan: routine care and discharge home (tomorrow) Comments: - Pelvic rest; take meds as prescribed - Incision care/no heavy lifting - ER return precautions: fever, n/v/abd pain, bleeding, HTN Time Spent With Patient Time: Total time spent is greater than 50% in coordination of care (as documented) at patient's floor/unit and/or counseling patient: Review of Systems Constitutional: Constitutional: Denies chills, Denies fever(s) and Denies headache(s) Eyes: Eyes: Denies change in vision ENT: Denies dizziness and Denies headache(s) Cardiovascular: Cardiovascular: Denies chest pain, Denies palpitations and Denies dyspnea Respiratory: Respiratory: Denies cough and Denies dyspnea Gastrointestinal: Gastrointestinal: Denies nausea and Denies vomiting Genitourinary: Comments: normal bleeding Neurologic: Denies dizziness and Denies headache(s) Endocrine: Endocrine: Denies palpitations Exam Const: General: cooperative, comfortable and no acute distress Orientatio n/consciousness: patient oriented x3 Resp: Effort & Inspection: normal respiratory effort Auscultation: clear to auscultation bilaterally Cardio: Rate: regular rate GI: Inspection: non-distended and incision (covered with clean dressing) GI Palp: Yes abdominal tenderness (appropriate) and Yes Soft to palpation Auscultation: normal bowel sounds : Other: fundus firm Skin: General skin exam: normal color Neuro: General: patient oriented x3 Extrem: General: normal to inspection Psych: Appearance: grossly normal Affect: normal affect Attitude: cooperative
[2023-08-28] MEDS: MULTIVIT/MIN/PREN/FOL AC/IRON TABLET 1 TAB PO (12:34)
--- NOTE | 2023-08-28 12:37 | PM.OBDSVD ---
DS: Admitting Diagnosis Discharge Date 08/29/23 Admitting Diagnosis Di-di twins labor DS: Discharge Diagnosis Discharge Diagnosis (1) S/P primary low transverse : Code(s): Z98.891 - History of uterine scar from previous surgery Status: Acute (2) labor in third trimester: Code(s): O60.03 - labor without delivery, third trimester Status: Acute (3) Dichorionic diamniotic twin gestation: Qualifiers: Trimester: third trimester Qualified Code(s): O30.043 - Twin , dichorionic/diamniotic, third trimester Code(s): O30.049 - Twin , dichorionic/diamniotic, unspecified trimester Status: Acute OB - DS: Summary OB Procedures : NST, Ultrasound and PTL Mgmt OB Procedures Intrapartum: low cervical, transverse OB Procedures: : None Peripartum Data Infant Delivery Method: Section Procedures: Procedures Operation Date: 08/25/23 10:30 Actual Procedure Side Surgeon p Section Bilateral Sarah Correa MD complications: none 2: Gender: Male (baby A) Disposition of : other 1: Gender: Female (Baby B) Disposition of : other Status at Discharge Functional status at discharge: independent ambulation Overall status at discharge: patient is back to baseline Time Spent with Patient Time attestation: Total time spent providing and/or coordinating discharge services: Time spent: Less than 30 minutes Exam Const: General: cooperative, comfortable, no acute distress and obese Orientation/consciousness: patient oriented x3 Resp: Effort & Inspection: normal respiratory effort Auscultation: clear to auscultation bilaterally Cardio: Rate: regular rate GI: Inspection: non-distended and incision (covered with PRASANTH dressing) GI Palp: No abdominal tenderness and Yes Soft to palpation Auscultation: normal bowel sounds : Other: fundus firm Skin: General skin exam: normal color Neuro: General: patient oriented x3 Extrem: General: normal to inspection Psych: Appearance: grossly normal Affect: normal affect Attitude: cooperative DS: Data Data Completed and Pending Pending studies at discharge: Pending at discharge 08/28/23 11:55 Surgical [PTH] Routine Discharge Plan Discharge Attending physician on discharge: Sarah Correa Discharging Clinician: Sarah Correa Anticipated Discharge Date/Time: 08/29/23 16:00 Patient Disposition: Home, Self-Care Activity: may shower and pelvic rest Diet: regular Discharge Instructions: keep dressing on until incision check appt on 09/04/23. Then keep incision clean and dry. No heavy lifting >15 lbs for 6 weeks. Patient Instructions: (DC) Stand Alone Forms: General Discharge Information Follow-up/Referrals: Sarah Correa MD [Physician] - 4 Weeks (and incision check on 09/04/23) Discharge Medications: New acetaminophen 500 mg tablet 1,000 mg PO TID Qty: 60 0RF docusate sodium [Colace] 100 mg capsule 100 mg PO BID Qty: 120 0RF ibuprofen 800 mg tablet 800 mg PO TID Qty: 30 0RF hydrocodone-acetaminophen 5-325 mg tablet 1 tablet PO Q3H PRN (Reason: pain) Qty: 24 0RF Continued prenat.vits,stephanie,qso-[id number]-crqbj Tablet 1 tablet PO DAILY Discontinued aspirin [Adult Low Dose Aspirin] 81 mg tablet,delayed release (DR/EC) 81 mg PO DAILY Abrysvo 120 mcg/0.5 mL recon soln 0.5 ml IM ONCE Qty: 1 0RF Rx Instructions: as a single dose metoclopramide HCl [Reglan] 5 mg tablet 5 mg PO DAILY Qty: 30 1RF Date of admission: 08/25/23 08:27 Primary Care Provider: RigoHermelindo Admitting Provider: Sarah Correa Attending physician on admission: Sarah Correa Condition: Stable
[2023-08-28 20:00] VITALS: BP 134/82; PULSE 89; RESP 16; TEMP 36.6; O2SAT 98
[2023-08-29] MEDS: IBUPROFEN 600 MG TABLET PO ×3 (01:47→18:20)
[2023-08-29 01:51] VITALS: BP 136/82; PULSE 76; RESP 16; TEMP 35.8; O2SAT 100
[2023-08-29] MEDS: SIMETHICONE 80 MG TAB.CHEW PO ×3 (05:41→18:25)
[2023-08-29] MEDS: HYDROcodone/acetaminophen (*CRX) 5-325 MG TABLET 1 TAB PO ×3 (05:41→18:24)
[2023-08-29 07:35] VITALS: BP 142/87; PULSE 66; RESP 16; TEMP 36.6; O2SAT 100
[2023-08-29] MEDS: DOCUSATE SODIUM 100 MG CAPSULE PO ×2 (09:00→18:25)
[2023-08-29] MEDS: MULTIVIT/MIN/PREN/FOL AC/IRON TABLET 1 TAB PO (09:00)
[2023-08-29] MEDS: POLYSACCHARIDE IRON COMPLEX 150 MG CAPSULE PO ×2 (09:00→18:25)
--- NOTE | 2023-08-29 15:25 | PC.NURSE ---
0830 - Report received for the second morning that mother is pumping and feeding her twins. She pumped close to 55mls yesterday and 100mls today. No reports of pain with pumping.
--- NOTE | 2023-08-29 18:27 | PC.NURSE ---
Pt discharged to no care bed status at this time
[2023-08-30 10:10] VITALS: BP 138/86; PULSE 82; RESP 18; TEMP 36.8; O2SAT 100
== END 2023-08-29 18:26 | disposition home or self-care (01) | DRG 788 ==
LOC: ANHOB2 08-27 13:04 → ANHOBPP 08-27 13:04
PROVIDERS: Admitting Provider Obstetrics & Gynecology; PCP Nurse Practitioner Family; Visit Provider Obstetrics & Gynecology
PROC: 10D00Z1 Extraction of Products of Conception, Low, Open Approach (ICD-10-PCS; CPT 59514; principal; 2023-08-25 10:30)
DX: O60.14X1 Preterm labor third trimester with preterm delivery third trimester, fetus 1 (principal); Z37.2 Twins, both liveborn; Z3A.35 35 weeks gestation of pregnancy; O60.14X2 Preterm labor third trimester with preterm delivery third trimester, fetus 2; O30.043 Twin pregnancy, dichorionic/diamniotic, third trimester; O32.1XX1 Maternal care for breech presentation, fetus 1; O32.1XX2 Maternal care for breech presentation, fetus 2; O99.214 Obesity complicating childbirth
CPT/HCPCS: 36415; 59025; 76819; 85025; 86592; 86850; 86900; 86901; 88307; A9270; J0690; J0702; J1100; J1165; J1885; J2274; J2405; J2590; J7120

== ENCOUNTER 2023-09-04 08:31 | Outpatient (CLI) | payer OTHER, SELFPAY ==
[2023-09-04 08:58] LABS: Basophils Percent Auto 0.4 % (0.2-1.2); Eosinophils Absolute Auto 0.1 K/mm3 (0-0.3); Eosinophils Percent Auto 1.5 % (0-4.4); Hematocrit 38.1 % (37.0-47.0); Hemoglobin 12.4 g/dL (12.0-15.0); Immature Granulocyte Absolute 0.04 K/mm3 (0.00-0.031); Immature Granulocyte Percent A 0.5 % (0-0.5); Lymphocytes Absolute Auto 2.91 K/mm3 (0.9-3.2); Lymphocytes Percent Auto 37.4 % (18.3-44.2); Mean Corpuscular HGB Conc 32.5 g/dl (32-36); Mean Corpuscular Hemoglobin 32.3 pg (26-34); Mean Corpuscular Volume 99.2 fl (80-100); Mean Platelet Volume 8.9 fl (7.4-10.4); Monocytes Absolute Auto 0.6 K/mm3 (0.1-0.6); Monocytes Percent Auto 8.2 % (2.6-8.5); Neutrophils Absolute Auto 4.1 K/mm3 (1.3-6.7); Platelet Count Result 299 k/mm3 (150-375); Red Blood Count 3.84 M/mm3 (4.2-5.4); Red Cell Distribution Width 12.4 % (11.5-14.5); White Blood Count 7.8 K/mm3 (4.5-10.0)
[2023-09-04 09:07] VITALS: BP 147/83; PULSE 61
[2023-09-04 09:07] LABS: Alanine Aminotransferase 23 U/L (6-35); Albumin Level 4.4 g/dL (3.5-5.1); Alkaline Phosphatase 102 U/L (38-126); Anion Gap 8 mmol/L (8-16); Aspartate Amino Transferase 32 U/L (14-36); Bilirubin,Total 0.8 mg/dL (0.2-1.3); Blood Urea Nitrogen 20 mg/dL (7-17); Calcium 9.7 mg/dL (8.4-10.2); Carbon Dioxide 24 mmol/L (22-30); Chloride 104 mmol/L (98-107); Estimated Glomerular Filt Rate > 60; Glucose 88 mg/dL (65-110); Potassium 3.9 mmol/L (3.4-5.0); Sodium 136 mmol/L (137-145)
[2023-09-04 09:15] VITALS: BP 148/95; PULSE 66
[2023-09-04 09:31] VITALS: BP 147/92; PULSE 69
[2023-09-04 09:46] VITALS: BP 153/91; PULSE 76
--- NOTE | 2023-09-04 09:50 | PC.NURSE ---
Dr. Correa updated on pt blood pressures and labs. Pt denies symptoms. Pt has schedule follow up next week with Dr. Correa. ordered strict pre E precaution be given to the pt. Discharge order received.
== END 2023-09-04 09:56 | disposition home or self-care (01) ==
LOC: ANHOBOP 08:40 → ANHOBPP 08:41
PROVIDERS: PCP Nurse Practitioner Family; Visit Provider Obstetrics & Gynecology
DX: O13.9 Gestational [pregnancy-induced] hypertension without significant proteinuria, unspecified trimester (principal); Z3A.00 Weeks of gestation of pregnancy not specified
CPT/HCPCS: 36415; 80053; 84550; 85025; 99199

== ENCOUNTER 2025-03-19 08:10 | Outpatient (CLI) | payer OTHER, SELFPAY ==
[2025-03-19 08:44] LABS: Basophils Percent Auto 0.6 % (0.2-1.2); Eosinophils Absolute Auto 0.3 K/mm3 (0-0.3); Eosinophils Percent Auto 4.3 % (0-4.4); Hematocrit 40.8 % (37.0-47.0); Hemoglobin 12.9 g/dL (12.0-15.0); Immature Granulocyte Absolute 0.01 K/mm3 (0.00-0.031); Immature Granulocyte Percent A 0.2 % (0-0.5); Immature Platelet Fraction Pct 2.8 % (0.9-11.2); Lymphocytes Absolute Auto 2.09 K/mm3 (0.9-3.2); Lymphocytes Percent Auto 33.7 % (18.3-44.2); Mean Corpuscular HGB Conc 31.6 g/dl (32-36); Mean Corpuscular Hemoglobin 30.4 pg (26-34); Mean Corpuscular Volume 96.2 fl (80-100); Mean Platelet Volume 10.6 fl (7.4-10.4); Monocytes Absolute Auto 0.4 K/mm3 (0.1-0.6); Monocytes Percent Auto 6.4 % (2.6-8.5); Neutrophils Absolute Auto 3.4 K/mm3 (1.3-6.7); Neutrophils Percent Auto 54.8 % (45.5-73.1); Platelet Count Result 237 k/mm3 (150-375); Red Blood Count 4.24 M/mm3 (4.2-5.4); Red Cell Distribution Width 13.2 % (11.5-14.5); White Blood Count 6.2 K/mm3 (4.5-10.0)
[2025-03-19 10:29] LABS: Thyroid Stimulating Hormone 0.843 uIU/mL (0.465-4.680)
[2025-03-19 11:38] LABS: Alanine Aminotransferase 20 U/L (6-35); Albumin Level 4.9 g/dL (3.5-5.1); Alkaline Phosphatase 64 U/L (38-126); Anion Gap 9 mmol/L (4-12); Aspartate Amino Transferase 30 U/L (14-36); Bilirubin,Total 0.5 mg/dL (0.2-1.3); Blood Urea Nitrogen 13 mg/dL (7-17); Calcium 9.7 mg/dL (8.4-10.2); Carbon Dioxide 26 mmol/L (22-30); Chloride 106 mmol/L (98-107); Cholesterol 202 mg/dL (0-200); Estimated Glomerular Filt Rate > 60; Glucose 105 mg/dL (65-110); HDL Direct 55 mg/dL; Sodium 141 mmol/L (137-145); Triglycerides 97 mg/dL (<150)
[2025-03-19 11:39] LABS: Iron 123 ug/dL (37-170)
[2025-03-19 11:49] LABS: LDL Cholesterol Direct 99 mg/dL
[2025-03-19 11:53] LABS: Percent Iron Saturation 37 % (20-50)
[2025-03-20 01:22] LABS: Progesterone <0.5 ng/mL
[2025-03-20 07:04] LABS: FSH 10.5 mIU/mL; LH 13.5 mIU/mL; Prolactin 14.9 ng/mL
[2025-03-20 07:13] LABS: DHEA-Sulfate 129 mcg/dL (19-237)
[2025-03-26 20:53] LABS: Testosterone Free 2.3 pg/mL (0.1-6.4); Testosterone Total 30 ng/dL (2-45)
== END 2025-03-19 08:11 | disposition home or self-care (01) ==
LOC: ANHLAB 08:12
PROVIDERS: PCP Nurse Practitioner Family; Visit Provider Obstetrics & Gynecology
DX: N92.0 Excessive and frequent menstruation with regular cycle (principal); F41.9 Anxiety disorder, unspecified; Z13.220 Encounter for screening for lipoid disorders
CPT/HCPCS: 36415; 80053; 80061; 82607; 82627; 82670; 82728; 83001; 83002; 83540; 83550; 84144; 84146; 84402; 84403; 84443; 85025; 85055

== ENCOUNTER 2025-09-17 07:05 | Outpatient (CLI) | payer OTHER, SELFPAY ==
[2025-09-17 08:21] LABS: Beta HCG Quantitative < 2.39 mIU/ML
== END 2025-09-17 07:06 | disposition home or self-care (01) ==
LOC: ANHLAB 07:07
PROVIDERS: PCP Nurse Practitioner Family; Referring Provider Nurse Practitioner Family; Visit Provider Obstetrics & Gynecology
DX: R53.83 Other fatigue (principal); N92.6 Irregular menstruation, unspecified
CPT/HCPCS: 36415; 82533; 84702